=== PATIENT | male | born 1955 | race Caucasian/White ===

== ENCOUNTER 2017-04-27 13:45 | Inpatient (IN) | payer OTHER, MEDICAID ==
--- NOTE | 2017-04-27 14:35 | EDPHY ---
H & P Stated Complaint: Fell yesterday;no LOC;wants CT, had MRI yesterday before fall Time Seen by Provider: 04/27/17 14:33 HPI/ROS: CHIEF COMPLAINT: Multiple falls. HISTORY OF PRESENT ILLNESS: The patient is a 62-year-old male with a history of cognitive decline, severe spinal stenosis, and a movement disorder resulting in falls. Patient reports multiple falls in the last several days. Patient's primary neurologist, Dr. Sanchez, is concerned regarding potential Deja's chorea. Patient did have MRI of his brain and cervical spine yesterday but had recurrent fall with head trauma last night. He was seen by Dr. Sanchez today and referred to the emergency department for further evaluation. She is concerned regarding the patient's ability to be safe at home. Patient denies specific weakness on 1 side or the other, denies frequent falling towards 1 side. He does report some urinary difficulties. Of note, patient has developed significant left wrist drop and left hand weakness over the last 3 weeks. In addition he has difficulty with dorsiflexion on the right leg. He admits left hand weakness for the past 3 weeks. No fever, chills, chest pain, shortness of breath, palpitations, vomiting, diarrhea, headache, lightheadedness. REVIEW OF SYSTEMS: Aside from elements discussed in the HPI, a comprehensive 10-point review of systems was reviewed and is negative. PAST MEDICAL HISTORY: Type II Diabetes, lumbar spinal fusions, benign tremors. SOCIAL HISTORY: Smokes cigarettes, former alcoholic. VITAL SIGNS: Reviewed by me GENERAL: Well-developed, well-nourished, persistent, random movements which the patient can volitionally control for brief periods of time. HEENT: Atraumatic. Abrasion across forehead. Swelling and laceration across bridge of nose. Eyes: No icterus, no injection. Nystagmus with rightward gaze. Difficulty holding rightward gaze. Pinpoint pupils. Mouth: moist mucous membranes. No erythema or lesions. Neck: supple with no adenopathy. LUNGS: Coarse breath sounds, expiratory wheezing, scattered rhonchi, wet cough. CARDIAC: Regular rate and rhythm, no rubs, murmurs or gallops. ABDOMEN: Soft, nontender, nondistended, bowel sounds normal. BACK: No CVA tenderness. EXTREMITIES: No edema. Range of motion is normal throughout. Abrasions over both knees NEURO: Alert and oriented, left wrist drop, weakness of the interosseous muscles , weak left home health travel pt. 4/5 strength in bilateral lower extremities with slight tremor. Unable to dorsiflexion right foot. SKIN: Warm and dry, no rash. PSYCHIATRIC: Normal mentation, no agitation. Portions of this note were transcribed by a medical accounting clerk. I personally performed a history, physical exam, medical decision making, and confirmed accuracy of information the transcribed note. Source: Patient Exam Limitations: No limitations - Personal History Current Tetanus Diphtheria and Acellular Pertussis (TDAP): Yes - Medical/Surgical History Other PMH: Benign essential tremor - Social History Smoking Status: Current every day smoker Constitutional: Initial Vital Signs Temperature (C) 37 C 04/27/17 13:54 Heart Rate 86 04/27/17 13:54 Respiratory Rate 18 04/27/17 13:54 Blood Pressure 104/50 L 04/27/17 13:54 O2 Sat (%) 94 04/27/17 13:54 O2 Delivery Mode Room Air Allergies/Adverse Reactions: No Known Allergies Allergy (Verified 04/27/17 18:51) Home Medications: Medication Instructions Recorded DULoxetine [Cymbalta 60 MG (*)] 60 mg PO DAILY 04/27/17 Donepezil HCl [Aricept] 10 mg PO DAILY 04/27/17 Gabapentin 600 mg PO BID PRN 04/27/17 Insulin Glargine,Hum.rec.anlog 30 unit SQ DAILY 04/27/17 [Toujeo Solostar] Liraglutide [Victoza 3-Blayne] 1.6 mg SQ DAILY 04/27/17 Losartan Potassium [Cozaar 25 mg 25 mg PO DAILY 04/27/17 (*)] Memantine HCl [Namenda Xr] 28 mg PO DAILY 04/27/17 Metformin HCl [Metformin 1000 mg] 1,000 mg PO BID 04/27/17 OLANZapine [Olanzapine Odt] 5 mg PO HS 04/27/17 Propranolol HCl 60 mg PO QID PRN 04/27/17 Propranolol Sr [Inderal LA 80mg 80 mg PO Q12 04/27/17 (*)] Temazepam 60 mg PO HS 04/27/17 oxyCODONE HCL/ACETAMINOPHEN 1 each PO Q8H PRN 04/27/17 [Percocet 10-325 mg Tablet] Medical Decision Making - Diagnostics EKG Interpretation: 12-LEAD EKG: Please see the full report in [facility]. My interpretation: Normal sinus rhythm Imaging Results: CT Cervical Spine: Impression: 1. No acute posttraumatic abnormality identified. If symptoms persist and clinical suspicion warrants, consider MRI. 2. Severe multilevel degenerative change from C4 through C7, with moderate to severe spinal canal narrowing. 3. Additional findings, as above. Findings discussed with Aurora Serrano M.D., on April 27, [address] Head: Impression: 1. Nondisplaced nasal bone fracture. 2. No acute intracranial findings. Findings discussed with Aurora Serrano MD 04/27/2017 at 16:20. Xray: Chest x-ray was obtained. I viewed the images myself on the PACS system. Impression: Right lower lobe pneumonia. ED Course/Re-evaluation: 62-year-old male presents with multiple falls in the past 2 days. He had c- spine and head MRIs yesterday that showed multilevel degenerative disc changes as well as severe spinal stenosis. MRI of the brain does not clearly indicate pathology to explain his movement disorder. He fell at home after having his MRIs taken and is here for intracranial injury rule-out. Head CT ordered. Chest x-ray ordered due to wheezing and coarse breath sounds heard on exam. 1622: CT results conveyed to me by the staff radiologist as negative for hemorrhage, patient does have a nasal bone fracture. No fractures of the cervical spine. 1702: Consulted with Dr. Vogt, neurosurgery. We discussed the course and plan for the patient. He will see the patient in the hospital. Patient's laboratory data indicates acute kidney injury with a creatinine 1.4. Patient's chest x-ray demonstrates possible right lower lobe pneumonia. He has reported a cough but no fever. Patient does have a mild the elevated white count at 10. 1746: Consulted with Dr. Lema, hospitalist. Patient will be admitted to the hospital for further evaluation of his significant instability, frequent falls, acute kidney injury and possible pneumonia. Differential Diagnosis: Differential diagnoses for the patient's symptom complex was considered including but not limited to intracranial hemorrhage, movement disorder, cerebellar infarct, spinal radiculopathies, electrolyte abnormalities, drug or alcohol intoxication, infection, pneumonia. - Data Points Laboratory Results: Laboratory Results 04/27/17 17:13 04/27/17 17:13 Medications Given: Discontinued Medications Albuterol/Ipratropium (Duoneb) 3 ml IH QID [facility] Stop: 10/24/17 21:40 Last Admin: 04/29/17 16:43 Dose: Not Given Donepezil HCl (Aricept) 10 mg PO DAILY [facility] Stop: 10/25/17 08:59 Last Admin: 04/29/17 09:20 Dose: 10 mg Duloxetine HCl (Cymbalta) 60 mg PO DAILY [facility] Stop: 10/25/17 08:59 Last Admin: 04/29/17 09:20 Dose: 60 mg Heparin Sodium (Porcine) (Heparin Sc Injection) 5,000 unit SC Q8 [facility] Stop: 10/24/17 21:59 Last Admin: 04/28/17 16:28 Dose: Not Given Azithromycin 500 mg/ Dextrose 255 mls @ 255 mls/hr IV DAILY [facility] PRN Reason: Protocol Stop: 05/27/17 21:59 Last Admin: 04/28/17 09:19 Dose: 255 mls Ceftriaxone Sodium/Dextrose (Rocephin 1 Gm (Premix)) 50 mls @ 100 mls/hr IV DAILY [facility] PRN Reason: Protocol Stop: 05/27/17 22:59 Last Admin: 04/28/17 08:25 Dose: 50 mls Sodium Chloride (Ns) 1,000 mls @ 150 mls/hr IV CONT [facility] Stop: 10/24/17 21:44 Last Admin: 04/28/17 06:13 Dose: 1,000 mls Lorazepam (Ativan Injection) 1 mg IVP [facility] Stop: 04/27/17 19:06 Last Admin: 04/27/17 19:24 Dose: 1 mg Miscellaneous Medication (Insulin Glargine,Hum.Rec.Anlog [Betty Barker]) 30 unit SQ DAILY [facility] Stop: 10/25/17 08:59 Last Admin: 04/29/17 10:12 Dose: Not Given Miscellaneous Medication (Liraglutide [Victoza 3-Blayne]) 1.6 mg SQ DAILY [facility] Stop: 10/25/17 08:59 Last Admin: 04/29/17 10:12 Dose: Not Given Miscellaneous Medication (Memantine Hcl [Namenda Xr]) 28 mg PO DAILY [facility] Stop: 10/25/17 08:59 Last Admin: 04/29/17 10:12 Dose: Not Given Olanzapine (Zyprexa Zydis) [address] [facility] Stop: 10/24/17 21:44 Last Admin: 04/28/17 21:42 Dose: 5 mg Propranolol HCl (Inderal La) 80 mg PO Q12 [facility] Stop: 10/24/17 21:44 Last Admin: 04/29/17 09:20 Dose: 80 mg Tamsulosin HCl (Flomax) 0.[address] [facility] Stop: 10/24/17 22:54 Last Admin: 04/28/17 21:41 Dose: 0.4 mg Temazepam (Restoril) [address] [facility] Stop: 10/24/17 21:44 Last Admin: 04/28/17 21:41 Dose: 60 mg Departure - Departure Disposition: [facility] [place] [facility] Acute Clinical Impression: Multiple falls, Multiple abrasions, Acute kidney injury Nasal bone fracture Qualifiers: Encounter type: initial encounter Fracture type: closed Qualified Code(s): S02.2XXA - Fracture of nasal bones, initial encounter for closed fracture Pneumonia Qualifiers: Pneumonia type: due to unspecified organism Laterality: right Lung location: lower lobe of lung Qualified Code(s): J18.1 - Lobar pneumonia, unspecified organism Condition: Fair Report Scribed for: Aurora Serrano Report Scribed by: Ignacio Zuluaga Date of Report: 04/27/17 Time of Report: 14:35
--- NOTE | 2017-04-27 14:50 | CPEKG ---
Heart Rate: 57 RR Interval: 1053 P-R Interval: 172 QRSD Interval: 96 QT Interval: 432 QTC Interval: 421 P Union: -1 QRS Union: 73 T Wave Union: 49 EKG Severity - NORMAL ECG - EKG Impression: SINUS RHYTHM EKG Impression: Agree with above Electronically Signed By: Jeremy Ruiz 28-Apr-2017 09:56:25
[2017-04-27 17:23] LABS: % IMMATURE GRANULYOCYTES 0.3 % (0.0-1.1); ABSOLUTE IMMATURE GRANULOCYTES 0.03 10^3/uL (0.00-0.10); ADD DIFF? NO; ADD MORPH? NO; ADD SCAN? NO; ATYPICAL LYMPHOCYTE FLAG 0 (0-99); FRAGMENT RBC FLAG 10 (0-99); HEMATOCRIT 41.3 % (40.0-51.0); HEMOGLOBIN 13.8 g/dL (13.7-17.5); LEFT SHIFT FLG 20 (0-99); LIPEMIA HEMOLYSIS FLAG 80 (0-99); MEAN CELL HEMOGLOBIN 30.3 pg (27.9-34.1); MEAN CELL HEMOGLOBIN CONCENTR. 33.4 g/dL (32.4-36.7); MEAN CELL VOLUME 90.6 fL (81.5-99.8); MEAN PLATELET VOLUME 9.5 fL (8.7-11.7); PLATELET CLUMPS FLAG 10 (0-99); PLATELET COUNT 235 10^3/uL (150-400); RED BLOOD CELL COUNT 4.56 10^6/uL (4.40-6.38); RED CELL DISTRIBUTION WIDTH 13.3 % (11.5-15.2)
[2017-04-27 17:34] LABS: ALANINE AMINOTRANSFERASE 45 IU/L (21-72); ALBUMIN 4.2 g/dL (3.5-5.0); ALKALINE PHOSPHATASE 98 IU/L (38-126); ANION GAP 11 mEq/L (8-16); ASPARTATE AMINOTRANSFERASE 71 IU/L (17-59); BILIRUBIN,TOTAL 0.8 mg/dL (0.1-1.4); BILIRUBIN-CONJUGATED 0.5 mg/dL (0.0-0.5); BILIRUBIN-UNCONJUGATED 0.3 mg/dL (0.0-1.1); CALCIUM 9.4 mg/dL (8.5-10.4); CARBON DIOXIDE 24 mEq/l (22-31); CHLORIDE 103 mEq/L (97-110); CREATININE 1.4 mg/dL (0.7-1.3); ETHANOL SERUM < 10 mg/dL (0-10); GLOMERULAR FILTRATION RATE 51; GLUCOSE 99 mg/dL (70-100); POTASSIUM 3.4 mEq/L (3.5-5.2); SODIUM 138 mEq/L (134-144); TOTAL PROTEIN 7.6 g/dL (6.3-8.2)
[2017-04-27 17:41] LABS: COLOR YELLOW; LEUKOCYTE ESTERASE,URINE NEGATIVE (NEGATIVE); NITRITE,URINE NEGATIVE (NEGATIVE)
[2017-04-27 17:44] LABS: MUCUS TRACE /lpf (NONE-1+)
[2017-04-27 17:45] LABS: TROPONIN I < 0.012 ng/mL (0-0.034)
[2017-04-27] MEDS ORDERED: LORazepam 1 MG TAB ONE (19:05)
[2017-04-27] MEDS ORDERED: LORazepam 2 MG/ML INJ IVP ONE (19:05)
[2017-04-27] MEDS ORDERED: ONDANSETRON 4 MG/2 ML VIAL IVP PRN (21:41)
[2017-04-27] MEDS ORDERED: ACETAMINOPHEN 325 MG TAB PO PRN (21:41)
[2017-04-27] MEDS ORDERED: ONDANSETRON DISINTEGRATING 4 MG TAB PO PRN (21:41)
[2017-04-27] MEDS ORDERED: PROPRANOLOL HCL 20 MG TAB PO PRN (21:45)
[2017-04-27] MEDS ORDERED: OXYCODONE/APAP 5/325 TAB PO PRN (21:45)
[2017-04-27] MEDS ORDERED: GABAPENTIN 300 MG CAP PO PRN (21:45)
--- NOTE | 2017-04-27 22:32 | PDGENHP ---
History and Physical - Chief Complaint Acute falls - History of Present Illness primary care provider: Dr. Turcios Primary neurologist: Dr. Sanchez HPI: 62-year-old male presenting with acute falls characterized as mechanical, with onset of symptoms approximately 3 weeks ago and duration intermittent thereafter, particularly escalating over the past 48 hours, associated with localized weakness in the left upper extremity and right lower extremity rendering significant wrist drop and foot drop. He has also had some associated nonproductive cough over the past 2 weeks and significant urinary hesitancy. He also endorses night sweats and chills. He denies any identifiable aspiration of events and reports he has been eating and drinking normally. Was seen in consultation by Dr. Sanchez who has recently diagnosed him with a neuro degenerative disorder including cognitive impairment, possible dementia, significant movement disorder properties. She has been pursuing an outpatient workup of possible Hopkins's variant but due to his escalation of falls she has recommended that he come to the emergency department. History Information - Allergies/Home Medication List Allergies/Adverse Reactions: No Known Allergies Allergy (Verified 04/27/17 18:51) Home Medications: DULoxetine [Cymbalta 60 MG (*)] 60 mg PO DAILY 04/27/17 [Last Taken Unknown] Donepezil HCl [Aricept] 10 mg PO DAILY 04/27/17 [Last Taken 04/27/17] Gabapentin 600 mg PO BID PRN 04/27/17 [Last Taken Unknown] Insulin Glargine,Hum.rec.anlog [Toufabriceo Solostar] 30 unit SQ DAILY 04/27/17 [ Last Taken 04/27/17] Liraglutide [Victoza 3-Blayne] 1.6 mg SQ DAILY 04/27/17 [Last Taken 04/26/17] Losartan Potassium [Cozaar 25 mg (*)] 25 mg PO DAILY 04/27/17 [Last Taken ] Memantine HCl [Namenda Xr] 28 mg PO DAILY 04/27/17 [Last Taken 04/27/17] Metformin HCl [Metformin 1000 mg] 1,000 mg PO BID 04/27/17 [Last Taken 04/27/17 1 tab] OLANZapine [Olanzapine Odt] 5 mg PO HS 04/27/17 [Last Taken 04/26/17] Propranolol HCl 60 mg PO QID PRN 04/27/17 [Last Taken Unknown] Propranolol Sr [Inderal LA 80mg (*)] 80 mg PO Q12 04/27/17 [Last Taken Unknown] Temazepam 60 mg PO HS 04/27/17 [Last Taken 04/26/17] oxyCODONE HCL/ACETAMINOPHEN [Percocet 10-325 mg Tablet] 1 each PO Q8H PRN [Last Taken Unknown] I have personally reviewed and updated: family history, medical history, social history, surgical history - Past Medical History Additional medical history: Recently diagnosed cognitive, movement disorder. - diabetes mellitus type 2. - insomnia. -alcoholism in remission. -chronic pain with continuous opiate dependency - Surgical History Additional surgical history: lumbar fusion, rotator cuff surgery - Family History Additional family history: no recent sick family contacts, is - Social History Smoking Status: Current every day smoker Alcohol Use: Sober (for 32 years) Drug Use: Marijuana Additional social history: does not use a cane or walker Review of Systems ROS: 10pt was reviewed & negative except for what was stated in HPI & below Constitutional: Reports: chills, weakness Respiratory: Reports: cough Genitourinary: Reports: other ( hesitancy) Neurological: Reports: other ( falls) Physical Exam Temp Pulse Resp BP Pulse Ox 37.1 C 68 20 109/69 90 L 04/27/17 19:47 04/27/17 19:47 04/27/17 19:47 04/27/17 19:47 04/27/17 19:47 Constitutional: no apparent distress, not in pain, chronically ill appearing, No uncomfortable Eyes: PERRL, anicteric sclera, EOMI Ears, Nose, Mouth, Throat: moist mucous membranes, hearing normal, ears appear normal, no oral mucosal ulcers Cardiovascular: regular rate and rhythym, no murmur, rub, or gallop, No irregularly irregular, No tachycardia, No edema Respiratory: expiratory wheeze, bronchial breath sounds, rhonchi ( inspiration right-sided, left lower lobe) Gastrointestinal: normoactive bowel sounds, soft, non-tender abdomen, no palpable masses Genitourinary: no bladder fullness, no bladder tenderness, other ( no CVA tenderness) Skin: other ( abrasion across nose, across forehead, abrasions on bilateral knees without any erythema) Neurologic: AAOx3, sensation intact bilaterally, CN II-XII Intact, other ( left wrist drop, right foot drop, dyskinetic movement) Psychiatric: interacting appropriately, not anxious, not encephalopathic, thought process linear, other ( concentration 7, naming 3/3) Lab Data & Imaging Review 04/27/17 17:13 04/27/17 17:13 WBC 10.08 10^3/uL (3.80-9.50) H 04/27/17 17:13 RBC 4.56 10^6/uL (4.40-6.38) 04/27/17 17:13 Hgb 13.8 g/dL (13.7-17.5) 04/27/17 17:13 Hct 41.3 % (40.0-51.0) 04/27/17 17: MCV 90.6 fL (81.5-99.8) 04/27/17 17:13 MCH 30.3 pg (27.9-34.1) 04/27/17 17: MCHC 33.4 g/dL (32.4-36.7) 04/27/17 17:13 RDW 13.3 % (11.5-15.2) 04/27/17 17:13 Plt Count 235 10^3/uL (150-400) 04/27/17 17:13 MPV 9.5 fL (8.7-11.7) 04/27/17 17:13 Neut % (Auto) 70.4 % (39.3-74.2) 04/27/17 17:13 Lymph % (Auto) 16.8 % (15.0-45.0) 04/27/17 17:13 [place] % (Auto) 9.0 % (4.5-13.0) 04/27/17 17:13 Eos % (Auto) 3.2 % (0.6-7.6) 04/27/17 17:13 Baso % (Auto) 0.3 % (0.3-1.7) 04/27/17 17:13 Nucleat RBC Rel Count 0.0 % (0.0-0.2) 04/27/17 17:13 Absolute Neuts (auto) 7.10 10^3/uL (1.70-6.50) H 04/27/17 17:13 Absolute Lymphs (auto) 1.69 10^3/uL (1.00-3.00) 04/27/17 17:13 Absolute Monos (auto) 0.91 10^3/uL (0.30-0.80) H 04/27/17 17:13 Absolute Eos (auto) 0.32 10^3/uL (0.03-0.40) 04/27/17 17:13 Absolute Basos (auto) 0.03 10^3/uL (0.02-0.10) 04/27/17 17:13 Absolute Nucleated RBC 0.00 10^3/uL (0-0.01) 04/27/17 17:13 Immature Gran % 0.3 % (0.0-1.1) 04/27/17 17:13 Immature Gran # 0.03 10^3/uL (0.00-0.10) 04/27/17 17:13 Turbidity Cancelled 04/27/17 17:13 Sodium 138 mEq/L (134-144) 04/27/17 17:13 Potassium 3.4 mEq/L (3.5-5.2) L 04/27/17 17:13 Chloride 103 mEq/L (97-110) 04/27/17 17:13 Carbon Dioxide 24 mEq/l (22-31) 04/27/17 17:13 Anion Gap 11 mEq/L (8-16) 04/27/17 17:13 BUN 35 mg/dL (7-23) H 04/27/17 17:13 Creatinine 1.4 mg/dL (0.7-1.3) H 04/27/17 17:13 Estimated GFR 51 04/27/17 17:13 Glucose 99 mg/dL (70-100) 04/27/17 17:13 Calcium 9.4 mg/dL (8.5-10.4) 04/27/17 17:13 Total Bilirubin 0.8 mg/dL (0.1-1.4) 04/27/17 17:13 Conjugated Bilirubin 0.5 mg/dL (0.0-0.5) 04/27/17 17:13 Unconjugated Bilirubin 0.3 mg/dL (0.0-1.1) 04/27/17 17:13 AST 71 IU/L (17-59) H 04/27/17 17:13 ALT 45 IU/L (21-72) 04/27/17 17:13 Alkaline Phosphatase 98 IU/L (38-126) 04/27/17 17:13 Troponin I < 0.012 ng/mL (0-0.034) 04/27/17 17:13 Total Protein 7.6 g/dL (6.3-8.2) 04/27/17 17:13 Albumin 4.2 g/dL (3.5-5.0) 04/27/17 17: Lipase < 10.0 IU/L (23-300) L 04/27/17 17:13 Specimen Hemolysis Cancelled 04/27/17 17:13 Urine Color YELLOW 04/27/17 17:30 Urine Appearance CLEAR 04/27/17 17:30 Urine pH 5.0 (5.0-7.5) 04/27/17 17:30 Ur Specific [place] 1.016 (1.002-1.030) 04/27/17 17:30 Urine Protein NEGATIVE (NEGATIVE) 04/27/17 17:30 Urine Ketones TRACE (NEGATIVE) H 04/27/17 17:30 Urine Blood 1+ (NEGATIVE) H 04/27/17 17:30 Urine Nitrate NEGATIVE (NEGATIVE) 04/27/17 17:30 Urine Bilirubin NEGATIVE (NEGATIVE) 04/27/17 17:30 Urine Urobilinogen NEGATIVE EU (0.2-1.0) 04/27/17 17:30 Ur Leukocyte Esterase NEGATIVE (NEGATIVE) 04/27/17 17:30 Urine RBC 1-3 /hpf (0-3) 04/27/17 17:30 Urine WBC 1-3 /hpf (0-3) 04/27/17 17:30 Ur Epithelial Cells TRACE /lpf (NONE-1+) 04/27/17 17:30 Urine Mucus TRACE /lpf (NONE-1+) 04/27/17 17:30 Urine Glucose NEGATIVE (NEGATIVE) 04/27/17 17:30 Urine Opiates Screen NEGATIVE (NEGATIVE) 04/27/17 17:30 Urine Barbiturates NEGATIVE (NEGATIVE) 04/27/17 17:30 Ur Phencyclidine Scrn NEGATIVE (NEGATIVE) 04/27/17 17:30 Ur Amphetamine Screen NEGATIVE (NEGATIVE) 04/27/17 17:30 U Benzodiazepines Scrn NON-NEGATIVE (NEGATIVE) H 04/27/17 17:30 Urine Cocaine Screen NEGATIVE (NEGATIVE) 04/27/17 17:30 U Marijuana (THC) Screen NON-NEGATIVE (NEGATIVE) H 04/27/17 17:30 Ethyl Alcohol < 10 mg/dL (0-10) 04/27/17 17:13 Visualized and Interpreted Chest x-ray results: Yes Chest X-Ray results: other ( right lower lobe infiltrate) Assessment & Plan Assessment: 62-year-old male presents with progressive neuro degenerative disorder and acute mechanical falls in the setting probable right lower lobe pneumonia, acute kidney Plan: 1. falls. Mechanical, secondary to a combination of neuro degenerative disorder as well as probable infection - treat infection - I have discussed patient's presentation with Dr. Serrano in the emergency department, she has informed me that Dr. Vogt will consult on this patient's cervical stenosis tomorrow morning and discuss whether could be also contributing to some of his weakness - PT, OT, case management to determine safe discharge location 2. neuro degenerative disorder. Chronic, patient is currently under the care of Dr. 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 probable community-acquired pneumonia. Acute, new problem this provider, further workup indicated. Evidenced by right lower lobe infiltrate on chest x- ray, mild leukocytosis, symptomatic cough, chills - send procalcitonin level to gauge whether this is bacterial versus viral - send urine strep, sputum cultures, blood cultures - day 1 of ceftriaxone/azithromycin 4. acute kidney injury. Acute, new problem this provider, further workup indicated. Patient reports good oral intake prior to this presentation so obstructive uropathy is of great concern given his urinary hesitancy, but hypoperfusion remains possible given possible infection - get ultrasound of kidneys and bladder - initiate Flomax given possible BPH - give normal saline, monitor urine output, monitor serum creatinine level 5. Chronic pain with continuous opiate and benzodiazepine dependency. Continue home patient medication - reviewed outside records including 07/25/[address] Juan, at that time the patient was also reliant on polypharmacy for benzos and opiates Diet. Regular Prophylaxis. High risk patient, heparin subcu Code. Full Disposition. Anticipated discharge uncertain this time, anticipated length stay is greater than 48 hours warranting inpatient admission status for acute recurrent falls in the setting of chronic neuro degenerative disorder but with high risk comorbid probable community-acquired pneumonia and acute kidney injury warranting further workup and inpatient treatment.
[2017-04-27] MEDS: AZITHROMYCIN IV 500 MG in D5W 250 ML IV SCH (22:45)
[2017-04-27] MEDS: TEMAZEPAM 15 MG CAP PO SCH (22:45)
[2017-04-27] MEDS: NS 1,000 ML IV SCH (22:45)
[2017-04-27] MEDS: OLANZapine DISINTEGR 5 MG TAB PO SCH (22:51)
[2017-04-27] MEDS: PROPRANOLOL SR 80 MG CAP PO SCH (22:51)
[2017-04-27] MEDS: HEPARIN 5,000 UNIT/0.5 ML SYR SC SCH (22:53)
[2017-04-27] MEDS: TAMSULOSIN HCL 0.4 MG CAP PO SCH (22:58)
[2017-04-27] MEDS: IPRATROPIUM/ALBUTEROL 3 ML DEYVIAL IH SCH (23:28)
[2017-04-28 05:19] LABS: % IMMATURE GRANULYOCYTES 0.3 % (0.0-1.1); ABSOLUTE IMMATURE GRANULOCYTES 0.02 10^3/uL (0.00-0.10); ADD DIFF? NO; ADD MORPH? NO; ADD SCAN? NO; ATYPICAL LYMPHOCYTE FLAG 0 (0-99); FRAGMENT RBC FLAG 0 (0-99); HEMATOCRIT 35.8 % (40.0-51.0); HEMOGLOBIN 12.1 g/dL (13.7-17.5); LEFT SHIFT FLG 20 (0-99); LIPEMIA HEMOLYSIS FLAG 90 (0-99); MEAN CELL HEMOGLOBIN 30.3 pg (27.9-34.1); MEAN CELL HEMOGLOBIN CONCENTR. 33.8 g/dL (32.4-36.7); MEAN CELL VOLUME 89.7 fL (81.5-99.8); MEAN PLATELET VOLUME 9.5 fL (8.7-11.7); PLATELET CLUMPS FLAG 0 (0-99); PLATELET COUNT 191 10^3/uL (150-400); RED BLOOD CELL COUNT 3.99 10^6/uL (4.40-6.38); RED CELL DISTRIBUTION WIDTH 13.3 % (11.5-15.2)
[2017-04-28 05:31] LABS: ALANINE AMINOTRANSFERASE 34 IU/L (21-72); ALKALINE PHOSPHATASE 80 IU/L (38-126); ANION GAP 8 mEq/L (8-16); ASPARTATE AMINOTRANSFERASE 51 IU/L (17-59); BILIRUBIN,TOTAL 0.7 mg/dL (0.1-1.4); CALCIUM 8.8 mg/dL (8.5-10.4); CARBON DIOXIDE 22 mEq/l (22-31); CHLORIDE 108 mEq/L (97-110); CREATININE 0.9 mg/dL (0.7-1.3); GLOMERULAR FILTRATION RATE > 60; GLUCOSE 117 mg/dL (70-100); POTASSIUM 3.5 mEq/L (3.5-5.2); SODIUM 138 mEq/L (134-144); TOTAL PROTEIN 5.7 g/dL (6.3-8.2)
[2017-04-28] MEDS: IPRATROPIUM/ALBUTEROL 3 ML DEYVIAL IH SCH ×4 (05:53→21:37)
[2017-04-28] MEDS: HEPARIN 5,000 UNIT/0.5 ML SYR SC SCH ×2 (06:11→16:28)
[2017-04-28] MEDS: NS 1,000 ML IV SCH (06:13)
[2017-04-28] MEDS: DULoxetine 60 MG CAP PO SCH (08:25)
[2017-04-28] MEDS: DONEPEZIL HCL 5 MG TAB PO SCH (08:25)
[2017-04-28] MEDS: Insulin Glargine,Hum.Rec.Anlog [Toujeo Solostar] SQ SCH (08:26)
[2017-04-28] MEDS: MEMANTINE HCL PO SCH (08:27)
[2017-04-28] MEDS: PROPRANOLOL SR 80 MG CAP PO SCH ×2 (08:27→21:42)
[2017-04-28] MEDS: LIRAGLUTIDE 1.6 MG SQ SCH (08:27)
[2017-04-28] MEDS: AZITHROMYCIN IV 500 MG in D5W 250 ML IV SCH (09:19)
--- NOTE | 2017-04-28 09:41 | SOAPPROG ---
SOAP Progress Note Assessment/Plan: Assessment: 62 yo male with known cervical stenosis who has declined our recommended cervical fusion surgery in the past. Presents with frequent falls and 1 month of left hand and wrist weakness. 1 week of productive cough He is being worked up by his Neurologist for neurodegenerative disorder, movement disorder (including possible [place]'s disease), possible dementia and cognitive impairment. Plan: Medical clearance for surgery next week ideally for probable multilevel cervical fusion. MRI and xrays cervical spine today to determine operative levels. PT/OT as tolerated He was scheduled for an outpatient Right upper extremity EMG to evaluate for Right radial nerve injury, he cannot get that as an inpatient. Abx for pneumonia per Hospitalists Neurology has been consulted by Hospitalist. Discussed with Dr. Gongora Subjective: awake, alert, comfortable. Productive cough denies pain. Left hand/wrist weakness x 1 month Objective: Vital Signs Temp Pulse Resp BP Pulse Ox 36.7 C 59 L 16 80/58 L 94 04/28/17 08:00 04/28/17 08:00 04/28/17 08:00 04/28/17 08:00 04/28/17 08:00 Laboratory Results 04/28/17 05:04 04/28/17 05:04 04/27/17 04/28/17 04/29/17 05:59 05:59 05:59 Intake Total 1340 Output Total 200 800 Balance 1140 -800 Neuro: left finger intrinsic/extensors and wrist flexor 1/5 sensation diminished in left index and thumb slight right DF weakness requires walker due to poor balance A+Ox4 follows commands speech clear ICD10 Worksheet Patient Problems: Problems Problem Status Onset Chronic Disease Mgmt/Transitional Care Acute Multiple abrasions Acute Multiple falls Acute Nasal bone fracture Acute
--- NOTE | 2017-04-28 15:46 | HOSPPROG ---
Hospitalist Progress Note Assessment/Plan: 62-year-old male presents with progressive neuro degenerative disorder and acute mechanical falls in the setting probable right lower lobe pneumonia, acute kidney Plan: 1. falls. Mechanical, secondary to a neuro degenerative disorder (doubt infection given negative pct) - PT, OT, case management to determine safe discharge location 2. neuro degenerative disorder. Chronic, patient is currently under the care of Dr. 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 doubtful community-acquired pneumonia given lack of symptoms and negative PCT -monitor off of abx 4. LISSA (no HN on US) resolved - continue Flomax given possible BPH - buff cpa ivf 5. Chronic pain with continuous opiate and benzodiazepine dependency. Continue home patient medication - reviewed outside records including 07/25/[address] Juan, at that time the patient was also reliant on polypharmacy for benzos and opiates 6. cervical stenosis -neurosurg consult reviewed. plan for fusion soon Diet. Regular Prophylaxis. High risk patient, change to lmwh Code. Full Disposition. Anticipated discharge uncertain this time, anticipated length stay is greater than 48 hours warranting inpatient admission status for acute recurrent falls in the setting of chronic neuro degenerative disorder but with high risk comorbid probable community-acquired pneumonia and acute kidney injury warranting further workup and inpatient treatment. Subjective: no new complaints. no fever or chills. no sob. still very weak Objective: Vital Signs Temp Pulse Resp BP Pulse Ox 37.7 C 57 L 14 82/51 L 92 04/28/17 12:00 04/28/17 15:09 04/28/17 15:09 04/28/17 12:00 04/28/17 15:09 Laboratory Results 04/28/17 05:04 04/28/17 05:04 04/27/17 04/28/17 04/29/17 05:59 05:59 05:59 Intake Total 1340 Output Total 200 800 Balance 1140 -800 - Physical Exam Constitutional: unkempt Cardiovascular: regular rate and rhythym, no murmur, rub, or gallop Respiratory: no respiratory distress, no rales or rhonchi, clear to auscultation Gastrointestinal: normoactive bowel sounds, soft, non-tender abdomen, no palpable masses, No guarding, No rebound Genitourinary: no bladder fullness, no bladder tenderness, no renal bruits Skin: no rashes or abrasions, no fluctuance, no induration ICD10 Worksheet Patient Problems: Problems Problem Status Onset Chronic Disease Mgmt/Transitional Care Acute Nasal bone fracture Acute Multiple falls Acute Multiple abrasions Acute
--- NOTE | 2017-04-28 16:10 | GCON ---
[f rep st] CONSULTATION NEUROSURGICAL CONSULTATION CHIEF COMPLAINT: Frequent falls and confusion. HISTORY OF PRESENT ILLNESS: The patient is a pleasant 62-year-old gentleman who is known to our practice for being seen for his severe cervical spinal stenosis at C4-5 and C5-6, and moderate stenosis at C6-7. The patient has been previously recommended to undergo surgery to protect his spinal cord at the C4 through C6 levels. The patient has declined surgery. Recently, the patient has been followed by Dr. Sanchez, his neurologist who was working him up for a movement disorder/neuro degenerative disorder, possible dementia and cognitive impairment. She contacted us yesterday and reported that when she was seeing the patient in her office, he was confused and had been falling more frequently over the past 2 days and hitting his head. She subsequently sent him to the [facility] Emergency Department where he was then seen by Dr. Vogt. He had a CT head performed which was negative for hemorrhage. Currently, the patient is not confused, but is complaining of difficulty with balance and controlling his legs. He is not having significant neck pain or arm pain, and denies any numbness or tingling with the exception of decreased sensation in his left thumb and index finger. He notes 1 month of left-sided wrist drop and decreased function in his left hand and fingers. He states that he has been falling for the past month as well to the point where he has been hitting his head and scratching his knees up. He states that his balance is quite poor and requires a walker to stand up. He is also reporting a 1-week history of a productive cough. ALLERGIES: No known drug allergies. HOME MEDICATIONS: 1. Cymbalta 60 mg p.o. daily. 2. Aricept 10 mg p.o. daily. 3. Gabapentin 600 mg p.o. twice daily p.r.n. 4. Insulin glargine 30 units subcu daily. 5. Victoza 1.6 mg subcu daily. 6. Cozaar 25 mg p.o. daily. 7. Namenda XR 28 mg p.o. daily. 8. Metformin 1000 mg p.o. twice daily. 9. Olanzapine ODT 5 mg p.o. at bedtime. 10. Propranolol 60 mg p.o. four times daily p.r.n. 11. Propranolol SR 80 mg p.o. q. 12. 12. Temazepam 60 mg p.o. at bedtime. 13. Percocet 10/325 one p.o. q.8 hours p.r.n. PAST MEDICAL HISTORY: 1. Recently diagnosed cognitive disorder, movement disorder. 2. Diabetes mellitus type 2. 3. Insomnia. 4. Alcoholism in remission. 5. Chronic pain with continuous opioid dependency. SURGICAL HISTORY: Two right rotator cuff surgeries and 1 left rotator cuff surgery and L4-5 fusion. SOCIAL HISTORY: The patient lives alone. He has smoked a pack of cigarettes for the past 30 years. He has been sober for 32 years Drug use: marijuana. PHYSICAL EXAMINATION: GENERAL: A pleasant 62-year-old male in no apparent distress. He has some involuntary movements of his head and body. HEENT: Within normal limits. EXTREMITIES: Within normal limits, with the exception of some healing and fresh scratches and scrapes over his bilateral knees. NEUROLOGIC: Patient is awake, alert, and oriented x4. Cranial nerves 2-12 are intact to gross examination. Speech is fluent. Spinal accessory muscles are intact. He has full strength in the right upper extremity and left lower extremity. He has trace weakness of the right dorsiflexor in his right lower extremity. 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 He is unable to spread his fingers apart or hold them straight up and down. He has 1/5 strength in his left wrist extensor. Sensation is decreased to light touch in his left thumb and index finger and webspace. Reflexes are 1/4 at bilateral biceps and brachioradialis with negative Coombs bilaterally. No clonus. REVIEW OF SYSTEMS: CONSTITUTIONAL: Reports chills, weakness. RESPIRATORY: Reports a cough. GENITOURINARY: Reports urinary hesitancy. NEUROLOGICAL: Reports frequent falls. DATA REVIEW: Lab data: White blood cell count 6.6, hemoglobin 12.1, hematocrit 35.8, platelets are 191. Sodium is 138, potassium 3.5, chloride 108 , carbon dioxide 22, BUN 21, creatinine 0.9. Urinalysis: Leukocyte esterase is negative. Trace ketones. Tox screen is negative. IMPRESSION: This is a 62-year-old male with multiple medical issues and recently having worsening balance and lower extremity coordination issues with frequent falls. In addition, he has a 1-month history of left wrist drop and weakness in his left fingers and hand, which may be related to radial nerve injury or attributable to his known cervical stenosis at C4-5 and C5-6 and to a lesser degree at C6-7. The patient was slated to undergo a left upper extremity EMG to evaluate for any evidence of radial nerve injury versus cervical radiculopathy to explain his left upper extremity symptoms; however, that will be unable to be performed as an inpatient. PLAN: At this time, we recommend the patient undergo a repeat MRI of the cervical spine as well as x-rays with flexion-extension views to further characterize his cervical stenosis. If his imaging studies continue to show the known stenosis at C4-5 and C5-6 then we would recommend the patient proceed with a C4 through C6 anterior cervical diskectomy and fusion next Monday if the patient has been cleared by Medicine. The patient is currently being treated for pneumonia by Medicine and so we will need the patient to be medically cleared to undergo surgery. At this point, the patient will be seen by Physical Therapy and Occupational Therapy and needs assistance whenever he is out of bed due to his fall risk. All the above issues discussed with Dr. Vogt. At this time, the patient will be tentatively scheduled to undergo surgery Monday at approximately 4 p.m. /[id number]/MODL MTDD
[2017-04-28] MEDS: TEMAZEPAM 15 MG CAP PO SCH (21:41)
[2017-04-28] MEDS: TAMSULOSIN HCL 0.4 MG CAP PO SCH (21:41)
[2017-04-28] MEDS: OLANZapine DISINTEGR 5 MG TAB PO SCH (21:42)
--- NOTE | 2017-04-28 22:36 | GCON ---
[f rep st] CONSULTATION NEUROLOGY CONSULTATION REFERRING PHYSICIAN: Ken Lema MD CHIEF COMPLAINT: Neurodegenerative disorder. HISTORY OF PRESENT ILLNESS: The patient is a very pleasant, 62-year-old gentleman, who is currently being evaluated by Dr. Maryam Sanchez, [facility], for a progressive neuro degenerative disorder. Because he started having frequent falls at home, Dr. Sanchez apparently instructed the patient to come to the emergency department for further evaluation and treatment. He has an ongoing outpatient evaluation currently for his neurologic condition. The patient's main change necessitating admission has been falls, apparently. It appears he has concomitant community-acquired pneumonia and acute kidney injury, which may be exacerbating his neurologic problem and adding to his falls. In addition, the patient is apparently on continuous opiate and benzodiazepines. He had a head CT without contrast showing no hemorrhage or acute findings. He also is being evaluated for a left wrist drop and right foot drop. He is scheduled to have EMG and nerve conduction studies with Dr. Sanchez apparently. REVIEW OF SYSTEMS: A 10-point review was performed with the patient, only pertinent to the HPI. For past medical history, social history, family history, allergies, home medications, see Dr. Lema's history and physical. PHYSICAL EXAMINATION: NEUROLOGIC: The patient was awake and alert in terms of higher mental function. On motor exam, the patient had mild, intermittent choreiform-like movements in his trunk, head, neck, and lower extremities. He also had focal weakness with left wrist extension and the right anterior tibialis. BILLING INFORMATION: Seventy total minutes of floor time reviewing the patient' s medical records, imaging, and in direct counseling with the patient. IMPRESSION AND PLAN: 1. Movement disorder. 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 He has choreiform movements and apparently is following the temporal profile of a neurodegenerative condition. The focal neuropathies at the left wrist and right footdrop may be from immobilization and peripheral nerve compression. Not clear. He certainly needs a comprehensive EMG and nerve conduction study as an outpatient with his primary neurologist, Dr. Sanchez to clarify the localization there. The primary indication for admission appears to be recurrent mechanical falls with multiple contributions including infection, chronic opiate and benzodiazepine use, along with the underlying neurologic condition. A drug- induced movement disorder will be considered as well as an outpatient. I do not think we need to add any other testing now as an inpatient as this is being performed as an outpatient and we do not have certain tests available in the inpatient setting (EMG and nerve conduction studies). Therefore, I recommend treatment of infection and transfer to a fdc facility, where he can continue his outpatient evaluation of his movement disorder. Plan was discussed with Dr. Robbins. No further recommendations now. We will continue following this very pleasant patient p.r.n. Please do not hesitate to call if there are any questions or changes in neurologic status. /[id number]/MODL MTDD
[2017-04-29 05:20] LABS: % IMMATURE GRANULYOCYTES 0.2 % (0.0-1.1); ABSOLUTE IMMATURE GRANULOCYTES 0.01 10^3/uL (0.00-0.10); ADD DIFF? NO; ADD MORPH? NO; ADD SCAN? NO; ATYPICAL LYMPHOCYTE FLAG 10 (0-99); FRAGMENT RBC FLAG 0 (0-99); HEMATOCRIT 36.5 % (40.0-51.0); HEMOGLOBIN 12.2 g/dL (13.7-17.5); LEFT SHIFT FLG 0 (0-99); LIPEMIA HEMOLYSIS FLAG 80 (0-99); MEAN CELL HEMOGLOBIN 30.2 pg (27.9-34.1); MEAN CELL HEMOGLOBIN CONCENTR. 33.4 g/dL (32.4-36.7); MEAN CELL VOLUME 90.3 fL (81.5-99.8); MEAN PLATELET VOLUME 9.8 fL (8.7-11.7); PLATELET CLUMPS FLAG 10 (0-99); PLATELET COUNT 199 10^3/uL (150-400); RED BLOOD CELL COUNT 4.04 10^6/uL (4.40-6.38); RED CELL DISTRIBUTION WIDTH 13.4 % (11.5-15.2)
[2017-04-29 05:32] LABS: ALANINE AMINOTRANSFERASE 35 IU/L (21-72); ALBUMIN 2.9 g/dL (3.5-5.0); ALKALINE PHOSPHATASE 82 IU/L (38-126); ANION GAP 9 mEq/L (8-16); ASPARTATE AMINOTRANSFERASE 39 IU/L (17-59); BILIRUBIN,TOTAL 0.6 mg/dL (0.1-1.4); CALCIUM 9.1 mg/dL (8.5-10.4); CARBON DIOXIDE 23 mEq/l (22-31); CHLORIDE 111 mEq/L (97-110); CREATININE 0.7 mg/dL (0.7-1.3); GLOMERULAR FILTRATION RATE > 60; GLUCOSE 135 mg/dL (70-100); POTASSIUM 3.8 mEq/L (3.5-5.2); SODIUM 143 mEq/L (134-144); TOTAL PROTEIN 5.5 g/dL (6.3-8.2)
[2017-04-29] MEDS: IPRATROPIUM/ALBUTEROL 3 ML DEYVIAL IH SCH ×3 (05:44→16:43)
[2017-04-29 08:09] VITALS: RESP 16
[2017-04-29] MEDS: DONEPEZIL HCL 5 MG TAB PO SCH (09:20)
[2017-04-29] MEDS: PROPRANOLOL SR 80 MG CAP PO SCH (09:20)
[2017-04-29] MEDS: DULoxetine 60 MG CAP PO SCH (09:20)
[2017-04-29] MEDS: LIRAGLUTIDE 1.6 MG SQ SCH (10:12)
[2017-04-29] MEDS: MEMANTINE HCL PO SCH (10:12)
[2017-04-29] MEDS: Insulin Glargine,Hum.Rec.Anlog [Toujeo Solostar] SQ SCH (10:12)
--- NOTE | 2017-04-29 11:23 | NEUSURGPN ---
Assessment/Plan: 62 male w/ multiple medical issues, possible cognitive impairment, gait instability with multiple falls, 1 month left wrist drop and known C4-6 cervical stenosis again noted on MRI. workup of of possible Radial nerve injury vs Cervical stenosis as cause of wrist drop incomplete as unable to get EMG inpatient. Pt is quite agitated with me this morning and is resistant to the idea of surgery and I am not certain he will consent to the proposed procedure Plan: Plan for C4-6 ACDF tentatively on Monday at 4pm if patient will consent to surgery and if he will be cleared by medical team. Medical management of PNA and other issues PT/OT, OOB with assistance given gait instability. DELMER Leigh V Subjective: quite agitated, doesn't want to remain in the hospital, wants all the bed alarms off. Not sure if he wants surgery and doesn't want to wait in the hospital. Objective: VSS, NAD, irritable EOMI, PEARLA speech clear, no facial droop tongue midline MAEx4, UE: 1/5 left WE, 3/5 Finger extension,otherwise 5/5 BLE: equal, some generalized weakness throughout 4+/5 ataxia, difficult to stand on two feet, wide stance ambulates well with walker. appears to have some deficit in UE coordination. +LT - Physician Discussed Patient with : [facility] Physical Exam - Vitals, I&O, Labs I and O 04/28/17 04/29/17 04/30/17 05:59 05:59 05:59 Intake Total 1340 1250 Output Total 200 800 Balance 1140 450 Weight 73.3 kg Intake: Oral (ml) 300 IV Intake (ml) 1040 1250 Output: Urine (ml) 200 800 Urinal 200 800 Other: Intake Quantity Yes Sufficient Number of Voids Toilet 2 1 Urinal 1 Number of Stools Toilet 1 1 Urinal 1 Bladder Scan Volume (ml) Toilet 115 Post Void Residual Scan Volume (ml) Urinal 0 Vital Signs Temp Pulse Resp BP Pulse Ox 36.7 C 72 16 102/69 93 04/29/17 08:00 04/29/17 09:20 04/29/17 08:00 04/29/17 09:20 04/29/17 08:00 Laboratory Results 04/29/17 04:51 04/29/17 04:51 ICD10 Worksheet Patient Problems: Problems Problem Status Onset Chronic Disease Mgmt/Transitional Care Acute Multiple abrasions Acute Multiple falls Acute Nasal bone fracture Acute
[2017-04-29 14:21] VITALS: PULSE 74; O2SAT 92
--- NOTE | 2017-04-29 14:26 | HOSPPROG ---
Hospitalist Progress Note Assessment/Plan: 62-year-old male presents with progressive neuro degenerative disorder and cervical stenosis presents with acute mechanical falls Plan: 1. falls. Mechanical, secondary to a neuro degenerative disorder (doubt infection given negative pct) - PT, OT, case management to determine safe discharge location 2. neuro degenerative disorder. Chronic, patient is currently under the care of Dr. Sanchez who was performing an outpatient workup for possible [place]'s disease, currently resulting in life threatening falls - head CT demonstrates no intracranial hemorrhage, cervical spine CT demonstrates some stenosis but no fracture - neuro consult reviewed and appreciated 3. doubtful community-acquired pneumonia given lack of symptoms and negative PCT -continue to monitor off of abx 4. LISSA (no HN on US) resolved - continue Flomax given possible BPH - buff cpa ivf 5. Chronic pain with continuous opiate and benzodiazepine dependency. Continue home patient medication - reviewed outside records including 07/25/[address] Juan, at that time the patient was also reliant on polypharmacy for benzos and opiates 6. cervical stenosis -neurosurg consult reviewed. pt is not fully on board with undergoing surgery at this time. will defer this discussion to the neurosurgical team Diet. Regular Prophylaxis. High risk patient, change to lmwh Code. Full Disposition. Anticipated discharge uncertain this time, anticipated length stay is greater than 48 hours warranting inpatient admission status for acute recurrent falls in the setting of chronic neuro degenerative disorder but with high risk comorbid probable community-acquired pneumonia and acute kidney injury warranting further workup and inpatient treatment. Subjective: no cough. no fever or chills. agreeable to rehab placement Objective: Vital Signs Temp Pulse Resp BP Pulse Ox 36.7 C 74 16 102/69 92 04/29/17 08:00 04/29/17 11:45 04/29/17 11:45 04/29/17 09:20 04/29/17 11:45 Laboratory Results 04/29/17 04:51 04/29/17 04:51 04/28/17 04/29/17 04/30/17 05:59 05:59 05:59 Intake Total 1340 1250 Output Total 200 800 Balance 1140 450 - Physical Exam Constitutional: no apparent distress, appears nourished, not in pain Cardiovascular: regular rate and rhythym, no murmur, rub, or gallop Respiratory: no respiratory distress, no rales or rhonchi, clear to auscultation , No dullness to percussion, No rhonchi Gastrointestinal: normoactive bowel sounds, soft, non-tender abdomen, no palpable masses ICD10 Worksheet Patient Problems: Problems Problem Status Onset Chronic Disease [facility]/Transitional Care Acute Nasal bone fracture Acute Multiple falls Acute Multiple abrasions Acute
[2017-04-29 16:02] VITALS: BP 111/67; TEMP 97.2
--- NOTE | 2017-04-30 19:17 | GDS ---
[f rep st] DISCHARGE SUMMARY DISCHARGE DIAGNOSIS: 1. Frequent falls. 2. 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 3. Resolved acute kidney injury. 4. Chronic pain with continuous opioid and benzodiazepine dependency. 5. Cervical stenosis. HOSPITAL COURSE: Falls: The patient was admitted with the initial diagnosis of pneumonia possibly contributing to his worsening weakness. Initial admission his procalcitonin was negative, which mad e the diagnosis of pneumonia very unlikely. Antibiotics were stopped on hospital day #1 and he has not had any fevers or respiratory symptoms since stopping antibiotics. Throughout the patient's hospital stay he has been weak and we were planning to have discharged him to retirement facility or inpatient rehab facility. He has been seen by Neurosurgery who were recommending cervical fusion. However, this was refused by the patient. He was also seen by Neurology during this hospital stay which thought his weakness was most likely d ue to early [place] disease given some choreiform movements. On April 29, 2017, the patient became quite frustrated and ultimately left the hospital against medic al advice. Prior to him leaving I did have the opportunity to talk to the patient on the phone wei vásquez he was able to express the consequences of him leaving the hospital and communicated to me that he could very well fall and suffer a grave injury and possibly even . I do believe that he did p ossess decisional-making capacity to sign himself out against medical advice. PHYSICAL EXAM ON DISCHARGE: Please refer to progress note in [facility]. DISCHARGE INSTRUCTIONS: Once again the patient left the hospital against medical advice. He was ur ged to follow up with his primary care provider and neurologist. He should come back to the [facility] if his weakness worsens. /[id number]/MODL
== END 2017-04-29 17:48 | disposition left against medical advice (07) | DRG 57 ==
LOC: F3N 19:42
PROVIDERS: ADMIT Internal Medicine; ATTEND Internal Medicine
DX: G31.9 Degenerative disease of nervous system, unspecified (principal); R29.6 Repeated falls; S02.2XXA Fracture of nasal bones, initial encounter for closed fracture; W19.XXXA Unspecified fall, initial encounter; Y92.9 Unspecified place or not applicable; Y99.8 Other external cause status; N17.9 Acute kidney failure, unspecified; M48.02 Spinal stenosis, cervical region; Z98.1 Arthrodesis status; G89.29 Other chronic pain; F11.20 Opioid dependence, uncomplicated; F13.20 Sedative, hypnotic or anxiolytic dependence, uncomplicated; E11.9 Type 2 diabetes mellitus without complications; F17.210 Nicotine dependence, cigarettes, uncomplicated; F10.21 Alcohol dependence, in remission
CPT/HCPCS: 80305; 92523-GN; 92610-GN; 96374; 97116-GP; 97162-GP; 97166-GO; G0480; G8978-GP-CL; G8979-GP-CJ; G8987-GO-CL; G8988-GO-CI; G9168-GN-CK; G9169-GN-CJ; J0456; J0696

== ENCOUNTER → 2017-11-02 | Outpatient (CLI) | payer OTHER, MEDICAID ==
[~2017-11-02] MED LIST: GADOBUTROL 10 ML VIAL IVP ONE
== END ==
LOC: FIMAGING 18:18
DX: R29.898 Other symptoms and signs involving the musculoskeletal system (principal); M50.20 Other cervical disc displacement, unspecified cervical region; M50.30 Other cervical disc degeneration, unspecified cervical region; M48.02 Spinal stenosis, cervical region
CPT/HCPCS: 70553; 72156; A9585